=== PATIENT | male | born 1980 | race African-American/Black ===

== ENCOUNTER 2016-06-29 20:25 | Emergency (ER) | payer OTHER ==
[2016-06-29 20:34] VITALS: BP 150/98; PULSE 86; TEMP 97.8; BMI 33.2
[2016-06-29] MEDS ORDERED: KETOROLAC TROMETHAMINE 60 MG/2 ML VIAL ONE (20:47)
[2016-06-29] MEDS ORDERED: KETOROLAC TROMETHAMINE 60 MG/2 ML VIAL IM ONE (20:50)
--- NOTE | 2016-06-29 21:05 | PDOC ---
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 Patient does state history of right lower back pain with sciatica but denies any radiation buttock at this time. Patient denies any radiation to his abdomen, saddle anesthesia, or weakness. Occurred: reports: just prior to arrival Pain Location: reports: back Method of Injury: Yes: other Modifying Factors: improves with: None Associated Symptoms (Fall): denies symptoms Past History - Travel Traveled outside of the country in the last 30 days: No - Past Medical History Allergies/Adverse Reactions: Allergies Allergy/AdvReac Type Severity Reaction Status Date / Time Penicillins Allergy Unknown Verified 06/29/16 20:32 shellfish derived Allergy Verified 06/29/16 20:32 fruit Allergy Uncoded 06/29/16 20:32 vegetables Allergy Uncoded 06/29/16 20:32 Home Medications: Ambulatory Orders Phenytoin Na Extended [Dilantin -] 200 mg PO HS #14 capsule 01/28/15 Seizures: Yes - Surgical History Neurologic Surgery: 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 (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.) - Psycho/Social/Smoking Cessation Hx Anxiety: No Suicidal Ideation: No Smoking History: Never smoked Have you smoked in the past 12 months: No Information on smoking cessation initiated: No Hx Alcohol Use: No Drug/Substance Use Hx: No Substance Use Type: None Patient Lives Alone: No Trauma Specific PMHX - Complaint Specific PMHX Back Injury: Yes Review of Systems - Review of Systems Able to Perform ROS?: Yes Constitutional: No: Symptoms Reported Musculoskeletal: Yes: Back Pain Integumentary: No: Symptoms Reported *Physical Exam - Vital Signs Last Vital Signs Temp Pulse Resp BP Pulse Ox 97.8 F 86 17 150/98 97 06/29/16 20:29 06/29/16 20:29 06/29/16 20:29 06/29/16 20:29 06/29/16 20:29 - Physical Exam General Appearance: Yes: Nourished, Appropriately Dressed. No: Apparent Distress Neck: negative: Tender, Decreased range of motion Gastrointestinal/Abdominal: negative: Tender Musculoskeletal: negative: CVA Tenderness, Decreased Range of Motion, Vertebral Tenderness (no midline. Tenderness at the right paraspinous muscles at L3 and L4 level) Extremity: positive: Normal Range of Motion Integumentary: positive: Normal Color, Warm, Moist Neurologic: positive: Motor Strength 5/5 (ambulatory) ED Treatment Course - Medications Given in the ED: ED Medications Discontinued Medications Generic Name Dose Route Start Last Admin Trade Name Freq PRN Reason Stop Dose Admin Ketorolac Tromethamine 60 mg 06/29/16 20:50 06/29/16 20:54 Toradol Injection - IM 06/29/16 20:51 60 mg ONCE ONE Administration Medical Decision Making - Medical Decision Making 06/29/16 21:04 The patient with acute onset of right low back pain after helping assist with an obese patient. Patient states history of low back pain that specific area patient has no midline tenderness but does have tenderness at the right paraspinous muscles likely due to muscle strain. Patient ordered for Toradol IM and recommended to apply ice for the next 3 days as much as he can tolerate. *DC/Admit/Observation/Transfer Diagnosis at time of Disposition: Strain of lumbar region Qualifiers: Encounter type: initial encounter Qualified Code(s): S39.012A - Strain of muscle, fascia and tendon of lower back, initial encounter - Discharge Dispostion Disposition: HOME Condition at time of disposition: Good - Patient Instructions Printed Discharge Instructions: DI for Low Back Pain Additional Instructions: Please take Motrin 600 mg every 8 hours for discomfort. Apply ice to the affected areas as tolerated for the next 3 days. Avoid triggers or movements that cause discomfort
== END 2016-06-29 21:15 | disposition home or self-care (01) ==
LOC: JERFT 20:25
PROC: 3E0233Z Introduction of Anti-inflammatory into Muscle, Percutaneous Approach (ICD-10-PCS; principal; 2016-06-29)
DX: S39.012A Strain of muscle, fascia and tendon of lower back, initial encounter (principal); X50.0XXA Overexertion from strenuous movement or load, initial encounter; X50.9XXA Other and unspecified overexertion or strenuous movements or postures, initial encounter; Y93.F2 Activity, caregiving, lifting; Y92.238 Other place in hospital as the place of occurrence of the external cause; Y99.0 Civilian activity done for income or pay
CPT/HCPCS: 99281-25

== ENCOUNTER 2016-10-19 20:53 | Emergency (ER) | payer OTHER ==
[2016-10-19 21:01] VITALS: BP 127/70; PULSE 63; TEMP 97; BMI 32.3
[2016-10-19 22:19] LABS: URINE APPEARANCE CLEAR; URINE BILIRUBIN NEGATIVE (NEGATIVE); URINE COLOR LTYELLOW; URINE GLUCOSE (UA) NEGATIVE (NEGATIVE); URINE KETONE NEGATIVE (NEGATIVE); URINE LEUK ESTERASE NEGATIVE (NEGATIVE); URINE NITRITE NEGATIVE (NEGATIVE); URINE PROTEIN NEGATIVE (NEGATIVE); URINE UROBILINOGEN NEGATIVE E.U./dl (0.2-1.0)
--- NOTE | 2016-10-19 22:34 | PDOC ---
History of Present Illness - General Chief Complaint: Urinary Problem Stated Complaint: PAIN Time Seen by Provider: 10/19/16 21:58 - History of Present Illness Initial Comments: 10/19/16 22:32 CHIEF COMPLAINT: urinary symptoms HISTORY OF PRESENT ILLNESS: 36 yo M with no PMH presents to [facility] with c/o that he thinks he has a UTI. HE reports that he has recently had some urinary frequency but denies any pain. He denies any hematuria or unusualy discharge. No recent travel or sick contacts. PAST MEDICAL HISTORY: Denies past medical history FAMILY HISTORY: Denies SOCIAL HISTORY: Denies tobacco, alcohol, illicit drug use. SURGICAL HISTORY: Denies ALLERGIES: No known drug allergies REVIEW OF SYSTEMS General/Constitutional: Denies fever or chills. Gastrointestinal: Denies nausea, vomiting. Genitourinary: Urinary frequency. Denies dysuria or other change in urination. Musculoskeletal: Denies joint or muscle swelling or pain. Denies neck or back pain. Skin: Denies rash or easy bruising. PHYSICAL EXAM General Appearance: Well-appearing, appropriately dressed. No apparent distress. HEENT: EOMI, PERRLA. Respiratory/Chest: Lungs CTAB. Cardiovascular: RRR. S1, S2. Musculoskeletal/Extremities: Normal inspection. FROM of all extremities, normal capillary refill. Pelvis Stable. No CVA tenderness. No tenderness to extremities, pedal edema, swelling, erythema or deformity. Integumentary: Appropriate color, dry, warm. 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 Fully oriented, alert. Appropriate mood/affect. Motor strength 5/5. No appreciable EOM palsy, facial droop or sensory deficit. 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 -UA, Ucx -Ct/GC Labs unremarkable. Advised patient to f/u with urology for concern for BPH. Advised patient of signs and symptoms for return to ER; patient verbalized understanding and agrees to plan. *DC/Admit/Observation/Transfer Diagnosis at time of Disposition: Urinary frequency - Discharge Dispostion Disposition: HOME Condition at time of disposition: Stable Admit: No - Referrals Referrals: Mandi Covarrubias MD [Primary Care Provider] - Nico Rios MD., [Staff Physician] - - Patient Instructions Printed Discharge Instructions: DI for Urinary Retention in Men Additional Instructions: Please follow up with urology for further evaluation of your urinary frequency. Please call for results of your chlaymdia and gonorrhea test if you do not hear back within 2 days. If you experience any increased pain, blood in the urine, fever, nausea, vomiting, or diarrhea, or any new or worsening symptoms, please return to the ER.
[2016-10-19 22:44] LABS: URINE BLOOD 3+ (NEGATIVE)
[2016-10-19 22:45] LABS: URINE MUCUS RARE; URINE WBC <1 /hpf (3-5)
== END 2016-10-19 23:03 | disposition home or self-care (01) ==
LOC: JERFT 20:53
DX: R35.0 Frequency of micturition (principal); G40.909 Epilepsy, unspecified, not intractable, without status epilepticus
CPT/HCPCS: 36415; 81003; 81015; 87086; 87491; 87591; 99281-25

== ENCOUNTER 2017-01-10 16:50 | Emergency (ER) | payer OTHER ==
[2017-01-10 16:57] VITALS: BP 138/88; PULSE 93; TEMP 98; BMI 32.3
--- NOTE | 2017-01-10 17:30 | PDOC ---
History of Present Illness - General Chief Complaint: RX Refill Stated Complaint: POSSIBLE INFECTION Time Seen by Provider: 01/10/17 17:30 History Source: Patient Exam Limitations: No Limitations - History of Present Illness Initial Comments: 01/10/17 17:30 CHIEF COMPLAINT: Medication refill HISTORY OF PRESENT ILLNESS: This is a 36 year old male with a history of seizure disorder on Phenytoin ER 200mg hs (last seizure long ago per patient) who presents for a medication refill. He has two capsules left and has not yet missed any medications. In addition, he is complaining of left ankle swelling and pain. He denies any trauma to the site. He notes that he has had lymphedema in the past. Patient no longer has a PCP because of insurance problems. REVIEW OF SYSTEMS: GENERAL/CONSTITUTIONAL: No fever or chills. No weakness. No weight change. HEAD, EYES, EARS, NOSE AND THROAT: No change in vision. No ear pain or discharge. No sore throat. CARDIOVASCULAR: No chest pain or palpitations. RESPIRATORY: No cough, wheezing, or shortness of breath. GASTROINTESTINAL: No nausea, vomiting, diarrhea or constipation. GENITOURINARY: No dysuria, frequency, or change in urination. MUSCULOSKELETAL: See HPI SKIN: No rash or easy bruising. NEUROLOGIC: No headache, vertigo, loss of consciousness, or loss of sensation. ALLERGIC/IMMUNOLOGIC: No hives or skin allergy. No latex allergy. PHYSICAL EXAM: GENERAL: The patient is awake, alert, and fully oriented, in no acute distress. HEAD: Normal with no signs of trauma. ENT: Pupils equal, round and reactive to light, extraocular movements intact, sclera anicteric, conjunctiva clear. Neck supple. LUNGS: Clear to auscultation bilaterally. Normal excursion. No respiratory distress or use of accessory muscles. CV: RRR, S1/S2, no MRG. Cap refill < 2 sec. ABDOMEN: Soft, non-distended, non-tender. EXTREMITIES: Mild tenderness at left medial malleolus. No calf pain. Negative Homans'. NEUROLOGICAL: Normal speech, normal gait. CN II-XII grossly intact. PSYCH: Normal mood, normal affect. SKIN: Warm, dry, normal turgor, no rashes or lesions noted. 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 -Rx refill -Ibuprofen for pain/swelling -Left ankle xray 01/10/17 19:21 Xray wet read: no acute process *DC/Admit/Observation/Transfer Diagnosis at time of Disposition: Prescription refill Ankle swelling Qualifiers: Laterality: left Qualified Code(s): M25.472 - Effusion, left ankle - Discharge Dispostion Disposition: HOME Condition at time of disposition: Stable Admit: No - Prescriptions Prescriptions: Phenytoin Na Extended [Dilantin -] 200 mg PO HS #60 capsule - Referrals Referrals: Arsenio Miranda MD [Staff Physician] - Adelso Chandler MD [Staff Physician] - 1 week (Neurologist) - Patient Instructions Printed Discharge Instructions: DI for Ankle Pain Additional Instructions: -Continue your Dilantin as prescribed -Rest with the ankle elevated and use the RANDY wrap provided -Follow up with a new primary care provider (referral enclosed) -Return here for any new or concerning symptoms
[2017-01-10] MEDS ORDERED: IBUPROFEN 600 MG TABLET (FP) PO ONE ×2 (18:53→18:58)
== END 2017-01-10 19:35 | disposition home or self-care (01) ==
LOC: JERFT 16:50
DX: Z76.0 Encounter for issue of repeat prescription (principal); G40.909 Epilepsy, unspecified, not intractable, without status epilepticus; M25.472 Effusion, left ankle
CPT/HCPCS: 73610-TC-LT; 73630-TC-LT; 99281-25

== ENCOUNTER 2017-03-14 20:36 | Emergency (ER) | payer BC, OTHER ==
[2017-03-14 20:45] VITALS: BP 132/81; PULSE 89; TEMP 97.7; BMI 34.0
[2017-03-14] MEDS ORDERED: ACETAMINOPHEN 325 MG TABLET (FP) PO ONE (23:31)
[2017-03-14] MEDS ORDERED: METOCLOPRAMIDE HCL INJECTION 10 MG/2 ML VIAL IM ONE (23:31)
[2017-03-14] MEDS ORDERED: ACETAMINOPHEN 325 MG TABLET (FP) ONE (23:34)
[2017-03-14] MEDS ORDERED: METOCLOPRAMIDE HCL INJECTION 10 MG/2 ML VIAL ONE (23:34)
--- NOTE | 2017-03-14 23:44 | PDOC ---
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 The patient reports developing a headache this morning, 10/10 severity at onset but now 5/10.He denies taking any medication for his headache. The patient also reports developing LUQ & RUQ abdominal pain shortly afterwards. However, the patient reports his abdominal pain resolved before presentation. The patient states he also presents to the ED for a medication refill on Phenytoin, his epilepsy medication, as he currently does not have a PCP. The patient is currently on 100 mg bid of Phenytoin, which was last prescribed here in the ED on 01/10/17. The patient does not currently have a Neurologist. The patient denies chest pain, shortness of breath, and dizziness Denies fever, chills, nausea, vomiting, diarrhea, and constipation. Denies dysuria, frequency, urgency and hematuria. Allergies: Penicillins Past surgical history: None reported. Social history: No reported cigarette, alcohol, or drug use. PCP: Previously Dr. Covarrubias, now none due to insurance issues. 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 SHUNT.) - Suicide/Smoking/Psychosocial Hx Smoking History: Never smoked Have you smoked in the past 12 months: No Information on smoking cessation initiated: No Hx Alcohol Use: No Drug/Substance Use Hx: No Substance Use Type: None <Nuzhat Evangelista - Last Filed: 03/15/17 01:52> - Past Medical History Allergies/Adverse Reactions: Allergies Allergy/AdvReac Type Severity Reaction Status Date / Time Penicillins Allergy Unknown Verified 03/14/17 20:56 shellfish derived Allergy Verified 03/14/17 20:56 fruit Allergy Uncoded 03/14/17 20:56 vegetables Allergy Uncoded 03/14/17 20:56 Home Medications: Ambulatory Orders Phenytoin Na Extended [Dilantin -] 200 mg PO HS #60 capsule 01/10/17 Review of Systems - Review of Systems Able to Perform ROS?: Yes Comments:: 03/14/17 23:48 GENERAL/CONSTITUTIONAL: No fever or chills. No weakness. HEAD, EYES, EARS, NOSE AND THROAT: No change in vision. No ear pain or discharge. No sore throat. CARDIOVASCULAR: No chest pain or shortness of breath. RESPIRATORY: No cough, wheezing, or hemoptysis. GASTROINTESTINAL: (+) RUQ & LUQ abdominal pain, now resolved. No nausea, vomiting, diarrhea or constipation. GENITOURINARY: No dysuria, frequency, or change in urination. MUSCULOSKELETAL: No joint or muscle swelling or pain. No neck or back pain. SKIN: No rash NEUROLOGIC: (+) Headache. No vertigo, loss of consciousness, or change in strength/sensation. ENDOCRINE: No increased thirst. No abnormal weight change. HEMATOLOGIC/LYMPHATIC: No anemia, easy bleeding, or history of blood clots. ALLERGIC/IMMUNOLOGIC: No hives or skin allergy. <Sandeep Brooks - Last Filed: 03/14/17 23:47> *Physical Exam - Vital Signs Last Vital Signs Temp Pulse Resp BP Pulse Ox 97.7 F 89 18 132/81 99 03/14/17 20:37 03/14/17 20:37 03/14/17 20:37 03/14/17 20:37 03/14/17 20:37 - Physical Exam Comments: 03/14/17 23:48 GENERAL: Awake, alert, and fully oriented, in no acute distress HEAD: No signs of trauma EYES: PERRLA, EOMI, sclera anicteric, conjunctiva clear ENT: Auricles normal inspection, hearing grossly normal, nares patent, oropharynx clear without exudates. Moist mucosa NECK: Normal ROM, supple, no lymphadenopathy, JVD, or masses LUNGS: Breath sounds equal, clear to auscultation bilaterally. No wheezes, and no crackles HEART: Regular rate and rhythm, normal S1 and S2, no murmurs, rubs or gallops ABDOMEN: Soft, nontender, normoactive bowel sounds. No guarding, no rebound. No masses EXTREMITIES: Normal range of motion, no edema. No clubbing or cyanosis. No cords, erythema, or tenderness NEUROLOGICAL: Cranial nerves II through XII grossly intact. Normal speech, normal gait SKIN: Warm, Dry, normal turgor, no rashes or lesions noted. <Sandeep Brooks - Last Filed: 03/14/17 23:47> - Vital Signs Last Vital Signs Temp Pulse Resp BP Pulse Ox 97.7 F 89 18 132/81 99 03/14/17 20:37 03/14/17 20:37 03/14/17 20:37 03/14/17 20:37 03/14/17 20:37 <Nuzhat Evangelista - Last Filed: 03/15/17 01:52> ED Treatment Course - Medications Given in the ED: ED Medications Discontinued Medications Generic Name Dose Route Start Last Admin Trade Name Freq PRN Reason Stop Dose Admin Acetaminophen 650 mg 03/14/17 23:31 03/14/17 23:40 Tylenol - PO 03/14/17 23:32 650 mg ONCE ONE Administration Metoclopramide HCl 10 mg 03/14/17 23:31 03/14/17 23:40 Reglan Injection - IM 03/14/17 23:32 10 mg ONCE ONE Administration <Sandeep Brooks - Last Filed: 03/14/17 23:47> - Medications Given in the ED: ED Medications Discontinued Medications Generic Name Dose Route Start Last Admin Trade Name Freq PRN Reason Stop Dose Admin Acetaminophen 650 mg 03/14/17 23:31 03/14/17 23:40 Tylenol - PO 03/14/17 23:32 650 mg ONCE ONE Administration Metoclopramide HCl 10 mg 03/14/17 23:31 03/14/17 23:40 Reglan Injection - IM 03/14/17 23:32 10 mg ONCE ONE Administration <Nuzhat Evangelista - Last Filed: 03/15/17 01:52> Medical Decision Making - Medical Decision Making 03/15/17 01:51 Pt comes with headache. Cant work today. He took nothing for the PRIEST. He will be given tylenol and reglan and discharged home. <Nuzhat Evangelista - Last Filed: 03/15/17 01:52> *DC/Admit/Observation/Transfer - Attestations Scribe Attestion: 03/14/17 23:48 Documentation prepared by Sandeep Brooks, acting as program medical director for Nuzhat Evangelista MD. <Sandeep Brooks - Last Filed: 03/14/17 23:47> - Discharge Dispostion Admit: No <Nuzhat Evangelista - Last Filed: 03/15/17 01:52> Diagnosis at time of Disposition: Headache - Discharge Dispostion Disposition: HOME Condition at time of disposition: Stable - Referrals Referrals: Mandi Covarrubias MD [Primary Care Provider] - - Patient Instructions Printed Discharge Instructions: DI for Headache - Post Discharge Activity
[2017-03-15] MEDS ORDERED: PHENYTOIN NA EXTENDED 100 MG CAPSULE (FP) ONE (02:45)
[2017-03-15] MEDS ORDERED: PHENYTOIN NA EXTENDED 100 MG CAPSULE (FP) PO ONE (02:46)
== END 2017-03-15 02:49 | disposition home or self-care (01) ==
LOC: JER 20:36
PROC: 3E023GC Introduction of Other Therapeutic Substance into Muscle, Percutaneous Approach (ICD-10-PCS; principal; 2017-03-14)
DX: R51 Headache (principal)
CPT/HCPCS: 99281-25

== ENCOUNTER 2017-05-13 08:01 | Emergency (ER) | payer OTHER ==
[2017-05-13 08:06] VITALS: BP 128/75; PULSE 90; TEMP 98.1; BMI 33.2
[2017-05-13] MEDS ORDERED: IBUPROFEN 600 MG TABLET (FP) PO ONE ×2 (09:08→09:24)
--- NOTE | 2017-05-13 09:14 | PDOC ---
History of Present Illness - General Chief Complaint: Injury Stated Complaint: FALL Time Seen by Provider: 05/13/17 08:21 History Source: Patient Exam Limitations: No Limitations - History of Present Illness Initial Comments: 05/13/17 09:09 States last night while at work slipped and fell to the right side landing on his buttocks and shoulder. No head injury, has mild complaints of shoulder and hip pain but is ambulatory. "I just want to make sure I didn't break anything" Occurred: reports: just prior to arrival Severity: reports: mild Pain Location: reports: upper extremity (left shpul;ajay and hip[. ) Modifying Factors: improves with: None Past History - Travel Traveled outside of the country in the last 30 days: No Close contact w/someone who was outside of country & ill: No - Past Medical History Allergies/Adverse Reactions: Allergies Allergy/AdvReac Type Severity Reaction Status Date / Time Penicillins Allergy Unknown Verified 05/13/17 08:06 shellfish derived Allergy Verified 05/13/17 08:06 fruit Allergy Uncoded 05/13/17 08:06 vegetables Allergy Uncoded 05/13/17 08:06 Home Medications: Ambulatory Orders Phenytoin Na Extended [Dilantin -] 200 mg PO HS #60 capsule 01/10/17 Phenytoin Na Extended [Dilantin -] 100 mg PO BID #14 capsule 03/15/17 COPD: No DVT: No Seizures: Yes - Surgical History 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 No: Symptoms Reported, Malaise HEENTM: Yes: See HPI. No: Symptoms Reported Musculoskeletal: Yes: Symptoms Reported, See HPI, Back Pain, Joint Swelling, Joint Stiffness All Other Systems: Reviewed and Negative *Physical Exam - Vital Signs Last Vital Signs Temp Pulse Resp BP Pulse Ox 98.1 F 90 20 128/75 100 05/13/17 08:03 05/13/17 08:03 05/13/17 08:03 05/13/17 08:03 05/13/17 08:03 - Physical Exam General Appearance: Yes: Appropriately Dressed, Apparent Distress HEENT: positive: WILLIE, Normal ENT Inspection, TMs Normal, Pharynx Normal Neck: positive: Supple Respiratory/Chest: positive: Lungs Clear. negative: Chest Tender Gastrointestinal/Abdominal: positive: Soft. negative: Tender Musculoskeletal: positive: Normal Inspection. negative: CVA Tenderness, Decreased Range of Motion (no deformity, bruising, immobility, or tenderness with range of motion), Muscle Spasm, Vertebral Tenderness Extremity: positive: Normal Capillary Refill, Normal Inspection Integumentary: positive: Normal Color, Dry, Warm. 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 We'll treat with NSAIDs *DC/Admit/Observation/Transfer Diagnosis at time of Disposition: Contusion Qualifiers: Encounter type: initial encounter Contusion area: lower back Qualified Code(s) : S30.0XXA - Contusion of lower back and pelvis, initial encounter - Discharge Dispostion Disposition: HOME Condition at time of disposition: Stable Admit: No - Referrals Referrals: Mandi Covarrubias MD [Primary Care Provider] - - Patient Instructions Printed Discharge Instructions: Easy Bruising (Alternative Therapy) Additional Instructions: Rest, ice to area on and off for 15 minutes 4-6 times a day Avoid heavy lifting or exercise until pain and swelling is resolved or until further directed Keep area highly elevated to reduce swelling Followup with orthopedist in one to 2 days if not improving, if significantly improved may wait one week for followup with orthopedist May use ibuprofen 2-200 mg tablets every 6 hours as needed for pain - Post Discharge Activity Forms/Work/School Notes: Back to Work
== END 2017-05-13 09:23 | disposition home or self-care (01) ==
LOC: JERFT 08:01
DX: S30.0XXA Contusion of lower back and pelvis, initial encounter (principal); G43.909 Migraine, unspecified, not intractable, without status migrainosus; W00.2XXA Other fall from one level to another due to ice and snow, initial encounter; Y93.89 Activity, other specified; Y92.238 Other place in hospital as the place of occurrence of the external cause; Y99.0 Civilian activity done for income or pay
CPT/HCPCS: 99281-25

== ENCOUNTER 2017-07-03 10:23 | Emergency (ER) | payer BC, OTHER ==
[2017-07-03 10:37] VITALS: BP 148/71; PULSE 69; TEMP 97.9; BMI 32.5
--- NOTE | 2017-07-03 11:05 | PDOC ---
History of Present Illness - General Chief Complaint: RX Refill Stated Complaint: EVALUATION History Source: Patient Exam Limitations: No Limitations - History of Present Illness Initial Comments: 07/03/17 17:40 This 37-year-old male who presents here to the fast track for the need of having a prescription refill. Patient has a history of seizures and takes Dilantin 200 mg by mouth daily however he is going to be out of his prescription. He does not have a primary care physician. Last seizure was over a year ago. Past History - Past Medical History Allergies/Adverse Reactions: Allergies Allergy/AdvReac Type Severity Reaction Status Date / Time Penicillins Allergy Unknown Verified 07/03/17 10:32 shellfish derived Allergy Verified 07/03/17 10:32 fruit Allergy Uncoded 07/03/17 10:32 vegetables Allergy Uncoded 07/03/17 10:32 Home Medications: Ambulatory Orders Phenytoin Na Extended [Dilantin -] 200 mg PO HS #60 capsule 01/10/17 Phenytoin Na Extended [Dilantin -] 100 mg PO BID #14 capsule 03/15/17 Phenytoin Na Extended [Dilantin -] 100 mg PO BID #60 capsule 07/03/17 COPD: No DVT: No Seizures: Yes - Surgical History 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 HEENT: Neg symptoms Respiratory: Neg SOB or difficulty in breathing Cardiac: Neg chest pain GI: Neg pain, n/v : Neg problems on voiding MS: Neg for joint pain/stiffness, no edema Neuro: Neg for LOC, weakness, Endocrine: Neg for excess thirst/hunger, cold/heat intolerance, excess sweating Allergies: + for allergies *Physical Exam - Vital Signs Last Vital Signs Temp Pulse Resp BP Pulse Ox 97.9 F 69 15 148/71 100 07/03/17 10:33 07/03/17 10:33 07/03/17 10:33 07/03/17 10:33 07/03/17 10:33 - Physical Exam Comments: 07/03/17 18:12 General Appearance: This well appearing 37-year-old male V/S: hemodynamically stable, afebrile Skin: WNL of pt's skin color, no signs of pallor, mottling, cyanosis Head:symmetrical Eyes: EOM's intact, PERRLA Ears: denies pain Nose: patent Throat: lips, teeth, gums, tongue, buccal mucos pink and moist Lungs: Chest symmetry equal. Cap refill <3 seconds. Lung sounds clear Cardiac: PMI at R 4MCL space, pos S1 and S2, regular rate. Abdomen: Soft, round, nontender : Not observed Muscularskeletal: Gait steady, ambulated in to ER, no edema +PMS Neuro: AAOx3, cognitively intact, speech clear and appropriate. Medical Decision Making - Medical Decision Making 07/03/17 18:12 Patient's prescription refilled and sent to pharmacy for Dilantin 200 mg by mouth daily at bedtime. *DC/Admit/Observation/Transfer Diagnosis at time of Disposition: Prescription refill - Discharge Dispostion Disposition: HOME Condition at time of disposition: Good Admit: No Decision to Admit order Date/Time: 07/03/17 11:04 Discharge instructions 1. Please follow up with your primary physician within the next few days and explain that you have been seen here in the Emergency Room. 2. If you experience any worsening of symptoms, please return to the ER 3. Rest 4. Drink plenty of water 5. 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
== END 2017-07-03 11:06 | disposition home or self-care (01) ==
LOC: JERFT 10:23
DX: Z76.0 Encounter for issue of repeat prescription (principal); G40.909 Epilepsy, unspecified, not intractable, without status epilepticus
CPT/HCPCS: 99281-25

== ENCOUNTER 2017-09-08 00:14 | Emergency (ER) | payer BC ==
[2017-09-08 00:33] VITALS: BP 121/78; PULSE 85; TEMP 97.5; BMI 32.5
--- NOTE | 2017-09-08 00:40 | PDOC ---
History of Present Illness - General Chief Complaint: RX Refill Stated Complaint: RX REFILL Time Seen by Provider: 09/08/17 00:30 History Source: Patient Exam Limitations: No Limitations - History of Present Illness Initial Comments: 09/08/17 00:50 37y M hx of FINE ARTS MODEL shunt, seizures on phenytoin 200mg QHS presents for med refill. pt has no complaints including heaadche, dizziness, viison changes, n/v, numbness/tingling/weakness. states that he is running out of his dilantin and would like a refill. has been having difficulty finding a neurologist for a timely visit. his last dose of phanytoin was today. Past History - Past Medical History Allergies/Adverse Reactions: Allergies Allergy/AdvReac Type Severity Reaction Status Date / Time Penicillins Allergy Unknown Verified 09/08/17 00:24 shellfish derived Allergy Verified 09/08/17 00:24 fruit Allergy Uncoded 09/08/17 00:24 vegetables Allergy Uncoded 09/08/17 00:24 Home Medications: Ambulatory Orders Phenytoin Na Extended [Dilantin -] 100 mg PO BID #14 capsule 03/15/17 Phenytoin Na Extended [Dilantin -] 100 mg PO BID #60 capsule 07/03/17 Phenytoin Na Extended [Dilantin -] 200 mg PO HS #60 capsule 09/08/17 COPD: No DVT: No Seizures: Yes - Surgical History Neurologic Surgery: Yes (FINE ARTS MODEL SHUNT.) - Immunization History Immunization Up to Date: Yes - Suicide/Smoking/Psychosocial Hx Smoking History: Never smoked Have you smoked in the past 12 months: No Information on smoking cessation initiated: No Hx Alcohol Use: No Drug/Substance Use Hx: No Substance Use Type: None Review of Systems - Review of Systems Able to Perform ROS?: Yes Comments:: 09/08/17 00:52 Constitutional - no reported Fever, Chills, HEENT: no reported vision changes, sore throat neurological: no reported headache, numbness, focal weakness, tingling, ataxia, *Physical Exam - Vital Signs Last Vital Signs Temp Pulse Resp BP Pulse Ox 97.5 F L 85 19 121/78 98 09/08/17 00:22 09/08/17 00:22 09/08/17 00:22 09/08/17 00:22 09/08/17 00:22 - Physical Exam Comments: 09/08/17 00:52 GENERAL: The patient is awake, alert, and fully oriented, Nontoxic - in no acute distress. HEAD: Normocephalic, atraumatic. EYES: lateral gaze deviation of R eye (chronic), EOMI on L eye ENT: Normal voice, Moist mucous membranes. NECK: Normal range of motion, supple LUNGS: Breath sounds equal, clear to auscultation bilaterally. No wheezes, no rhonchi, no rales. HEART: Regular rate and rhythm, normal S1 and S2 without murmur, rub or gallop. ABDOMEN: Soft, nontender, No guarding, no rebound. EXTREMITIES: Normal range of motion, no edema. No clubbing or cyanosis. No cords, erythema, or tenderness. NEUROLOGICAL: No facial assymetry, Normal speech, PSYCH: Normal mood, normal affect. SKIN: Warm, Dry, normal turgor, Medical Decision Making - Medical Decision Making 09/08/17 00:53 Will refill rx of phenytoin We'll discharge patient follow with neurology discussed the importance of following up with neurology for further management and follow up as the patient has a FINE ARTS MODEL shunt, and has a seizure history. He has no complaints to suggest any complications of the FINE ARTS MODEL shunt. Return precautions were discussed I discussed the physical exam findings, ancillary test results and final diagnoses with the patient. I answered all of the patient's questions. The patient was satisfied with the care received and felt comfortable with the discharge plan and treatment plan. The patient will call their primary care physician within 24 hours to arrange follow-up and will return to the Emergency Department with any new, persistent or worsening symptoms. *DC/Admit/Observation/Transfer Diagnosis at time of Disposition: Seizure disorder - Discharge Dispostion Disposition: HOME Condition at time of disposition: Stable Decision to Admit order: No - Prescriptions Prescriptions: Phenytoin Na Extended [Dilantin -] 200 mg PO HS #60 capsule - Referrals Referrals: Niurka Collazo NP [Primary Care Provider] - Adelso Chandler MD [Staff Physician] - - Patient Instructions Printed Discharge Instructions: DI for Seizure Disorder -- Adult Additional Instructions: Return to the emergency department immediately with ANY new, persistent or worsening symptoms including any headache, dizziness, vision changes or other concerns. Continue taking your dilantin as prescribed. You MUST call and follow up with your a neurologist for further evaluation of your symptoms. Results were discussed with you. Please make sure your doctor reviews the results of your emergency evaluation. Print Language: SINGAPOREAN - Post Discharge Activity
== END 2017-09-08 00:48 | disposition home or self-care (01) ==
LOC: SUPCPDRO 00:14 → JER 00:14
DX: G40.909 Epilepsy, unspecified, not intractable, without status epilepticus (principal)
CPT/HCPCS: 99281-25

== ENCOUNTER 2017-10-16 07:18 | Emergency (ER) | payer BC ==
[2017-10-16 08:10] VITALS: BP 137/87; PULSE 87; TEMP 97.4; BMI 32.3
--- NOTE | 2017-10-16 08:18 | PDOC ---
History of Present Illness - General Chief Complaint: RX Refill Stated Complaint: RX REFILL Time Seen by Provider: 10/16/17 08:05 History Source: Patient - History of Present Illness Timing/Duration: other Past History - Past Medical History Allergies/Adverse Reactions: Allergies Allergy/AdvReac Type Severity Reaction Status Date / Time Penicillins Allergy Unknown Verified 10/16/17 07:21 shellfish derived Allergy Verified 10/16/17 07:21 fruit Allergy Uncoded 10/16/17 07:21 vegetables Allergy Uncoded 10/16/17 07:21 Home Medications: Ambulatory Orders Phenytoin Na Extended [Dilantin -] 200 mg PO HS #60 capsule 10/16/17 COPD: No DVT: No Seizures: Yes - Surgical History 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 No: Apparent Distress HEENT: positive: Normal Voice Neck: positive: Supple Respiratory/Chest: negative: Respiratory Distress Integumentary: positive: Dry, Warm Neurologic: positive: Fully Oriented, Alert, Normal Mood/Affect Medical Decision Making - Medical Decision Making 10/16/17 08:19 37-year-old male, history of grand mal seizures on phenytoin, ran out of meds, and here for refill. Patient states he took last dose last night. Has not had a seizure since 2016. No acute medical complaints otherwise today. Patient states he has been lost to follow up with his PMD, Dr. Covarrubias and currently does not have a neurologist. States he did call his insurance and got a list of neurologists who accepts his insurance, but states when he calls he is sometimes told that "doctor is no longer working there". States he will continue to try and find himself a neurologist. Refill sent to pharmacy stable for discharge *DC/Admit/Observation/Transfer Diagnosis at time of Disposition: Medication refill - Discharge Dispostion Disposition: HOME Condition at time of disposition: Good - Prescriptions Prescriptions: Phenytoin Na Extended [Dilantin -] 200 mg PO HS #60 capsule - Referrals - Patient Instructions Additional Instructions: Continue taking your medication as prescribed and continue to try and find a neurologist, who accepts your insurance. You can also follow-up with your PMD for refill of her meds in the future - Post Discharge Activity
== END 2017-10-16 08:38 | disposition home or self-care (01) ==
LOC: JER 07:18
DX: Z76.0 Encounter for issue of repeat prescription (principal)
CPT/HCPCS: 99281-25

== ENCOUNTER 2017-11-25 08:33 | Emergency (ER) | payer BC ==
[2017-11-25 08:55] VITALS: BP 118/64; PULSE 74; TEMP 98.3; BMI 31.8
[2017-11-25] MEDS ORDERED: KETOROLAC TROMETHAMINE 60 MG/2 ML VIAL IM ONE (10:15)
[2017-11-25] MEDS ORDERED: KETOROLAC TROMETHAMINE 60 MG/2 ML VIAL ONE (10:18)
--- NOTE | 2017-11-25 10:19 | PDOC ---
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 Is uncertain as to cause , denies any changes in exercise, lifting or trauma. States has not had an issue with his back for many months. Takes no medication for relief of same. Occurred: reports: yesterday Severity: reports: moderate Pain Location: reports: back Method of Injury: Yes: unknown Modifying Factors: improves with: None Loss of Consciousness: no loss of consciousness Associated Symptoms (Fall): denies symptoms Past History - Travel Traveled outside of the country in the last 30 days: No Close contact w/someone who was outside of country & ill: No - Past Medical History Allergies/Adverse Reactions: Allergies Allergy/AdvReac Type Severity Reaction Status Date / Time Penicillins Allergy Unknown Verified 11/25/17 08:51 shellfish derived Allergy Verified 11/25/17 08:51 fruit Allergy Uncoded 11/25/17 08:51 vegetables Allergy Uncoded 11/25/17 08:51 Home Medications: Ambulatory Orders Naproxen [Naprosyn -] 500 mg PO TID #30 tablet 11/25/17 Phenytoin Na Extended [Dilantin -] 100 mg PO DAILY 11/25/17 COPD: No DVT: No Seizures: Yes - Surgical History 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 No: Fever HEENTM: No: Symptoms Reported Respiratory: No: Symptoms reported Musculoskeletal: Yes: Symptoms Reported, See HPI, Back Pain, Muscle Pain Integumentary: No: Symptoms Reported All Other Systems: Reviewed and Negative *Physical Exam - Vital Signs Last Vital Signs Temp Pulse Resp BP Pulse Ox 98.3 F 74 20 118/64 100 11/25/17 08:51 11/25/17 08:51 11/25/17 08:51 11/25/17 08:51 11/25/17 08:51 - Physical Exam General Appearance: Yes: Nourished, Appropriately Dressed, Apparent Distress, Mild Distress, Moderate Distress HEENT: positive: WILLIE, Normal ENT Inspection, TMs Normal, Pharynx Normal Neck: positive: Supple Gastrointestinal/Abdominal: positive: Soft Musculoskeletal: positive: Normal Inspection Extremity: positive: Normal Capillary Refill, Normal Inspection, Normal Range of Motion (ambulatory but walks with mild limp to the right) Integumentary: positive: Normal Color Neurologic: positive: conservation planner II-XII NML intact, Fully Oriented, Alert, Normal Mood/ Affect, Normal Response, Motor Strength /5 Progress Note - Progress Note Progress Note: Acute on chronic back pain, we'll treat with NSAIDs and cyclobenzaprine *DC/Admit/Observation/Transfer Diagnosis at time of Disposition: Acute exacerbation of chronic low back pain - Discharge Dispostion Disposition: HOME Condition at time of disposition: Stable Decision to Admit order: No - Prescriptions Prescriptions: Naproxen [Naprosyn -] 500 mg PO TID #30 tablet - Referrals Referrals: Mandi Covarrubias MD [Primary Care Provider] - Tim Arambula MD [Staff Physician] - - Patient Instructions Printed Discharge Instructions: DI for Back Strain or Sprain Additional Instructions: Rest, no heavy lifting or exercise until pain is resolved Hot soaks to neck and low back as often as possible/hot showers or Jacuzzis No massage or therapy until spasm is gone Continue Naprosyn 500 mg tablet, 1 tablet every 8 hours for the next 3 days then as needed for pain and swelling If not significant improvement within 24 hours with medication and rest regime, followup with private physician for change in medications and /or therapy. - Post Discharge Activity Forms/Work/School Notes: Back to Work
== END 2017-11-25 10:24 | disposition home or self-care (01) ==
LOC: JERFT 08:33
PROC: 3E0233Z Introduction of Anti-inflammatory into Muscle, Percutaneous Approach (ICD-10-PCS; principal; 2017-11-25)
DX: M54.5 Low back pain (principal); Z88.0 Allergy status to penicillin; Z91.013 Allergy to seafood
CPT/HCPCS: 99281-25

== ENCOUNTER 2017-12-25 04:43 | Emergency (ER) | payer BC ==
[2017-12-25 05:06] VITALS: BP 124/75; PULSE 88; TEMP 97.7; BMI 31.1
--- NOTE | 2017-12-25 05:06 | PDOC ---
History of Present Illness - General Chief Complaint: RX Refill Stated Complaint: RX REFILL Time Seen by Provider: 12/25/17 05:04 - History of Present Illness Initial Comments: 12/25/17 05:26 The patient is a 37 year old male with a history of seizures and a v/p shunt who presents for a prescription refill. The patient states that he is running out of his dilantin and is requesting a refill. He has been unable to establish follow up care with a neurologist. He states that he has not had a seizure since 2016. He otherwise is asymptomatic and denies any fevers, chills , SOB, chest pain, nausea, vomiting, abdominal pain, or changes with urination or bowel movements. 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.) - Immunization History Immunization Up to Date: Yes - Suicide/Smoking/Psychosocial Hx Smoking History: Never smoked Have you smoked in the past 12 months: No Information on smoking cessation initiated: No Hx Alcohol Use: No Drug/Substance Use Hx: No Substance Use Type: None Review of Systems - Review of Systems Comments:: 12/25/17 05:30 Constitutional: No fevers, chills, fatigue, malaise HEENT: No Rhinorrhea, nasal congestion, visual changes Cardiovascular: No chest pain, syncope, palpitations, lightheadedness Respiratory: No Cough, SOB, Hemoptysis, Gastrointestinal: No Abdominal pain, Nausea, Vomiting, Constipation, Diarrhea, Melena Genitourinary: No Dysuria, Frequency, Urgency, Hesitancy, Hematuria, Flank pain Musculoskeletal: No Myalgia, arthralgia Skin: No rashes, itching, bruising, pallor Neurologic: No Headache, Dizziness, Numbness, Weakness, or Tingling Psychiatric: No Hallucinations. No SI or HI *Physical Exam - Vital Signs Last Vital Signs Temp Pulse Resp BP Pulse Ox 97.7 F 88 18 124/75 98 12/25/17 04:59 12/25/17 04:59 12/25/17 04:59 12/25/17 04:59 12/25/17 04:59 - Physical Exam Comments: 12/25/17 05:30 General Appearance: Nourished. No Apparent Distress HEENT: No Pharyngeal Erythema, Tonsillar Exudate, Tonsillar Erythema Neck: No Cervical Lymphadenopathy Respiratory/Chest: Lungs Clear, Normal Breath Sounds. No Crackles, Rales, Rhonchi, Wheezing Cardiovascular: Regular Rhythm, Regular Rate. No Murmur, Gallops, Rubs Gastrointestinal/Abdominal: Normal Bowel Sounds, Soft. No Guarding, Rebound, Tenderness Musculoskeletal: No CVA Tenderness Extremity: Normal Capillary Refill Integumentary: Normal Color, Dry, Warm Neurologic: Fully Oriented, Alert, Normal Mood/Affect, Normal Response, Medical Decision Making - Medical Decision Making 12/25/17 05:30 The patient is a 37 year old male with a history of seizures and a v/p shunt who presents for a prescription refill. The patient appears well on exam here in the ER. We discussed the need to follow up with a neurologist with the patient and will provide a number for the patient to schedule follow up. We are comfortable discharging the patient home with a refill for his dilantin with neurology follow up. We discussed the plan and return precautions with the patient who voiced understanding and is agreeable with the plan. *DC/Admit/Observation/Transfer Diagnosis at time of Disposition: Prescription refill - Discharge Dispostion Disposition: HOME Condition at time of disposition: Stable - Prescriptions Prescriptions: Phenytoin Na Extended [Dilantin -] 100 mg PO DAILY #60 capsule - Referrals Referrals: Adelso Chandler MD [Staff Physician] - - Patient Instructions Printed Discharge Instructions: DI for Seizure Disorder -- Adult Additional Instructions: Please return to the ER if you experience concerning or worsening symptoms. It is very important that you call to schedule a follow up appointment with our neurologist Dr. Chandler within 1 week to discuss your ER visit and further management of your symptoms and to establish care. We have sent a prescription to your pharmacy for your seizure medication. - Post Discharge Activity
--- NOTE | 2017-12-25 05:20 | PDOC ---
Attending Attestation - Resident Resident Name: [facility] - ED Attending Attestation I have performed the following: I have examined & evaluated the patient, The case was reviewed & discussed with the resident, I agree w/resident's findings & plan, Exceptions are as noted - HPI HPI: 12/25/17 05:25 37 yo M presenting to the ER for medication refill - Physicial Exam PE: 12/25/17 05:25 Awake and alert No acute abnormalities - Medical Decision Making 12/25/17 05:26 Prescription ordered Will discharge to home
== END 2017-12-25 07:06 | disposition home or self-care (01) ==
LOC: JER 04:43
DX: Z76.0 Encounter for issue of repeat prescription (principal)
CPT/HCPCS: 99281-25

== ENCOUNTER 2018-02-26 08:17 | Emergency (ER) | payer OTHER, BC ==
[2018-02-26 08:37] VITALS: BP 117/78; PULSE 68; TEMP 98.2; BMI 34.4
--- NOTE | 2018-02-26 08:49 | PDOC ---
History of Present Illness - General Chief Complaint: Pain, Acute Stated Complaint: LEG PAIN Time Seen by Provider: 02/26/18 08:38 History Source: Patient Exam Limitations: No Limitations - History of Present Illness Initial Comments: 02/26/18 08:47 37-year-old male presents with complaints of right calf pain for 1 week . 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 Patient states to walk and has full mobility but does have pain with movement intermittently. Patient denies sensory changes distal of injury or radiation of pain. Timing/Duration: 1 week Severity: mild Associated Symptoms: reports: denies symptoms Past History - Travel Traveled outside of the country in the last 30 days: No - Past Medical History Allergies/Adverse Reactions: Allergies Allergy/AdvReac Type Severity Reaction Status Date / Time Penicillins Allergy Unknown Verified 02/26/18 08:31 shellfish derived Allergy Verified 02/26/18 08:31 fruit Allergy Uncoded 02/26/18 08:31 vegetables Allergy Uncoded 02/26/18 08:31 Home Medications: Ambulatory Orders Phenytoin Na Extended [Dilantin -] 100 mg PO DAILY #60 capsule 12/25/17 COPD: No DVT: No Seizures: Yes - Surgical History 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6) - Immunization History Immunization Up to Date: Yes - Suicide/Smoking/Psychosocial Hx Smoking History: Never smoked Have you smoked in the past 12 months: No Hx Alcohol Use: No Drug/Substance Use Hx: No Substance Use Type: None Patient Lives Alone: No Review of Systems - Review of Systems Able to Perform ROS?: Yes Constitutional: No: Symptoms Reported Musculoskeletal: Yes: Muscle Pain (right calf) Integumentary: No: Symptoms Reported, Bruising Neurological: No: Symptoms reported *Physical Exam - Vital Signs Last Vital Signs Temp Pulse Resp BP Pulse Ox 98.2 F 68 20 117/78 99 02/26/18 08:31 02/26/18 08:31 02/26/18 08:31 02/26/18 08:31 02/26/18 08:31 - Physical Exam General Appearance: Yes: Nourished, Appropriately Dressed. No: Apparent Distress HEENT: positive: EOMI Respiratory/Chest: negative: Respiratory Distress Extremity: positive: Normal Capillary Refill, Normal Inspection, Normal Range of Motion, Tender (distal aspect of right calf). negative: Pedal Edema Integumentary: positive: Normal Color, Warm, Moist Neurologic: positive: Motor Strength 5/5 (ambulatory) Medical Decision Making - Medical Decision Making 02/26/18 08:51 CC: Rt calf pain x 1 week Exam: tenderness to distal aspect of right calf muscle, likely strain Plan: supportive care instructions given *DC/Admit/Observation/Transfer Diagnosis at time of Disposition: Strain of calf muscle - Discharge Dispostion Disposition: HOME Condition at time of disposition: Good - Referrals - Patient Instructions Printed Discharge Instructions: DI for Calf Muscle Strain Additional Instructions: Please apply heat pad to area as needed May take motrin 400mg as needed for pain - Post Discharge Activity
== END 2018-02-26 09:20 | disposition home or self-care (01) ==
LOC: JERFT 08:17
DX: S86.911A Strain of unspecified muscle(s) and tendon(s) at lower leg level, right leg, initial encounter (principal); X58.XXXA Exposure to other specified factors, initial encounter; Y93.89 Activity, other specified; Y92.239 Unspecified place in hospital as the place of occurrence of the external cause; Y99.0 Civilian activity done for income or pay; R56.9 Unspecified convulsions
CPT/HCPCS: 99281-25

== ENCOUNTER 2018-04-15 03:28 | Emergency (ER) | payer BC, OTHER ==
[2018-04-15 04:18] VITALS: BP 130/95; PULSE 72; TEMP 97.8
[2018-04-15 04:20] VITALS: BMI 33.9
--- NOTE | 2018-04-15 04:46 | PDOC ---
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 Patient reports increased nasal congestion but denies any sore throats, ear pain, fevers, chills, difficulty breathing, chest pain. No recent travel or sick contacts. PAST MEDICAL HISTORY: see HPI SURGICAL HISTORY: Denies ALLERGIES: PCN, shellfish REVIEW OF SYSTEMS General/Constitutional: Denies fever or chills. Denies weakness, weight change. HEENT: Denies change in vision. Denies ear pain or discharge. Denies sore throat. +nasal congestion. +facial pain Cardiovascular: Denies chest pain or shortness of breath. Respiratory: Denies cough, wheezing, or hemoptysis. Gastrointestinal: Denies nausea, vomiting, diarrhea or constipation. Denies rectal bleeding. Genitourinary: Denies dysuria, frequency, or change in urination. Musculoskeletal: Denies joint or muscle swelling or pain. Denies neck or back pain. Skin and breasts: Denies rash or easy bruising. Neurologic: Denies headache, vertigo, loss of consciousness, or loss of sensation. Psychiatric: Denies depression or anxiety. Endocrine: Denies increased thirst. Denies abnormal weight change. Hematologic/Lymphatic: Denies anemia, easy bleeding, or history of blood clots. Allergic/Immunologic: Denies hives or skin allergy. Denies latex allergy. PHYSICAL EXAM General Appearance: Well-appearing, appropriately dressed. No apparent distress , no intoxication. HEENT: EOMI, PERRLA, normal ENT inspection, normal voice, TMs normal, pharynx normal. No conjunctival pallor. No photophobia, scleral icterus. Tenderness to light palpation over frontal and maxillary sinuses. Inflamed nasal turbinates noted. Neck: Supple. Trachea midline. No tenderness, rigidity, carotid bruit, stridor , lymphadenopathy, or thyromegaly. Respiratory/Chest: Lungs CTAB. No shortness of breath, chest tenderness, respiratory distress, accessory muscle use. No crackles, rales, rhonchi, stridor , wheezing, dullness Cardiovascular: RRR. S1, S2. No JVD, murmur, bradycardia, tachycardia. Neurologic: container filler II-XII intact. Fully oriented, alert. Appropriate mood/affect. Motor strength 5/5. No appreciable EOM palsy, facial droop or sensory deficit. 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 SHUNT at age 6) - Immunization History Immunization Up to Date: Yes - Suicide/Smoking/Psychosocial Hx Smoking History: Never smoked Have you smoked in the past 12 months: No Information on smoking cessation initiated: No Hx Alcohol Use: No Drug/Substance Use Hx: No Substance Use Type: None *Physical Exam - Vital Signs Last Vital Signs Temp Pulse Resp BP Pulse Ox 97.8 F 72 20 130/95 99 04/15/18 03:28 04/15/18 03:28 04/15/18 03:28 04/15/18 03:28 04/15/18 03:28 Moderate Sedation - Procedure Monitoring Vital Signs: Procedure Monitoring Vital Signs Temperature 97.8 F 04/15/18 03:28 Pulse Rate 72 04/15/18 03:28 Respiratory Rate 20 04/15/18 03:28 Blood Pressure 130/95 04/15/18 03:28 O2 Sat by Pulse Oximetry (%) 99 04/15/18 03:28 Medical Decision Making - Medical Decision Making 04/15/18 04:46 A/P: 38-year-old male with sinusitis Symptomatic treatment with [id number] medications such as [place], Tylenol, Motrin. Atrovent nasal spray prescription for nasal congestion. Patient to follow-up with his primary doctor in 7-10 days if symptoms do not resolve. *DC/Admit/Observation/Transfer Diagnosis at time of Disposition: Sinusitis nasal Qualifiers: Sinusitis location: maxillary Chronicity: acute Recurrence: non-recurrent Qualified Code(s): J01.00 - Acute maxillary sinusitis, unspecified - Discharge Dispostion Disposition: HOME Condition at time of disposition: Fair Decision to Admit order: No - Prescriptions Prescriptions: Ipratropium [place] 30 ml NS TID PRN #1 bottle PRN Reason: Nasal Congestion - Referrals - Patient Instructions Printed Discharge Instructions: DI for Sinusitis Additional Instructions: Keep well-hydrated. Drink plenty of water, teas, juices, Gatorade, Pedialyte Use Aminah Pot as needed to help decrease congestion You may use [place] nasal spray for sinus congestion Use Atrovent nasal spray 1 spray in each nostril 3 times a day as needed for congestion Take Tylenol or Motrin to help with pain. Follow manufacture's instructions for appropriate dosage. Make an appointment with her primary doctor for reevaluation within the next 7 days. Return to emergency department for any worsening pain, foul-smelling discharge from her nose, thick mucus discharge from her nose or any other concerns. - Post Discharge Activity
--- NOTE | 2018-04-15 05:11 | PDOC ---
*Physical Exam - Vital Signs Last Vital Signs Temp Pulse Resp BP Pulse Ox 97.8 F 72 20 130/95 99 04/15/18 03:28 04/15/18 03:28 04/15/18 03:28 04/15/18 03:28 04/15/18 03:28 Medical Decision Making - Medical Decision Making 04/15/18 05:11 Well appearing young man with nasal congestion Agree with documented assessment and plan *DC/Admit/Observation/Transfer Diagnosis at time of Disposition: Sinusitis nasal Qualifiers: Sinusitis location: maxillary Chronicity: acute Recurrence: non-recurrent Qualified Code(s): J01.00 - Acute maxillary sinusitis, unspecified - Discharge Dispostion Disposition: HOME Condition at time of disposition: Fair - Prescriptions Prescriptions: Ipratropium [place] 30 ml NS TID PRN #1 bottle PRN Reason: Nasal Congestion - Referrals - Patient Instructions Printed Discharge Instructions: DI for Sinusitis Additional Instructions: Keep well-hydrated. Drink plenty of water, teas, juices, Gatorade, Pedialyte Use Aminah Pot as needed to help decrease congestion You may use [place] nasal spray for sinus congestion Use Atrovent nasal spray 1 spray in each nostril 3 times a day as needed for congestion Take Tylenol or Motrin to help with pain. Follow manufacture's instructions for appropriate dosage. Make an appointment with her primary doctor for reevaluation within the next 7 days. Return to emergency department for any worsening pain, foul-smelling discharge from her nose, thick mucus discharge from her nose or any other concerns. - Post Discharge Activity
== END 2018-04-15 05:20 | disposition home or self-care (01) ==
LOC: JER 03:28
DX: J01.00 Acute maxillary sinusitis, unspecified (principal)
CPT/HCPCS: 99281-25

== ENCOUNTER 2018-05-04 07:20 | Emergency (ER) | payer BC ==
[2018-05-04 07:46] VITALS: BP 106/65; PULSE 96; TEMP 98.6; BMI 32.5
--- NOTE | 2018-05-04 08:13 | PDOC ---
History of Present Illness - General Chief Complaint: Cold Symptoms Stated Complaint: FLU LIKE SYMPTOMS Time Seen by Provider: 05/04/18 07:43 History Source: Patient Exam Limitations: No Limitations - History of Present Illness Initial Comments: 05/04/18 08:07 Pt. is a 38 y.o. M w/ PMHx. of epilepsy (s/p OVERSEER KOSHER KITCHEN shunt last when 19 y.o.) presents to the ED for "feeling under the weather," and diarrhea that started last night. Pt. states he has had 2 diarrheal episodes since this morning that contained non-bloody loose stool. Pt. complains of discomfort in the head just above the eyes and dehydration. Pt. denies fever, chills, cough, SOB, abdominal pain, nausea vomiting, dysuria, polyuria, hematuria, sudden changes in vision or chest pain. CBC, CMP, Mag, influenza test, and IVF were ordered. 05/04/18 09:36 Labs wnl Pt. will be given home dose of Keppra and is safe for discharge. Timing/Duration: 24 hours Severity: mild Modifying Factors: improves with: rest Associated Symptoms: reports: headaches. denies: chest pain, cough, diaphoresis , fever/chills, loss of appetite, nausea/vomiting, rash, seizure, shortness of breath, syncope Aspirin Received prior to arrival: Yes: no aspirin today Beta Rachael Contraindications(Core Measure): Yes: Not Prescribed Past History - Past Medical History Allergies/Adverse Reactions: Allergies Allergy/AdvReac Type Severity Reaction Status Date / Time Penicillins Allergy Unknown Verified 05/04/18 09:18 shellfish derived Allergy Verified 05/04/18 09:18 fruit Allergy Uncoded 05/04/18 09:18 vegetables Allergy Uncoded 05/04/18 09:18 Home Medications: Ambulatory Orders Phenytoin Na Extended [Dilantin -] 100 mg PO DAILY #60 capsule 12/25/17 Ipratropium [place] 30 ml NS TID PRN #1 bottle 04/15/18 COPD: No DVT: No Seizures: Yes - Surgical History Gastric Stapling: No Lung Surgery: No Neurologic Surgery: Yes (OVERSEER KOSHER KITCHEN SHUNT at age 6) - Immunization History Immunization Up to Date: Yes - Suicide/Smoking/Psychosocial Hx Smoking History: Never smoked Have you smoked in the past 12 months: No Information on smoking cessation initiated: No Hx Alcohol Use: No Drug/Substance Use Hx: No Substance Use Type: None Review of Systems - Review of Systems Constitutional: Yes: Weakness. No: Chills, Fever, Loss of Appetite HEENTM: No: Eye Pain, Recent change in vision, Tinnitus, Hearing Loss, Throat Pain, Throat Swelling, Difficulty Swallowing Respiratory: No: Cough, Shortness of Breath, SOB at Rest, Wheezing, Productive cough, Hemoptysis Cardiac (ROS): No: Chest Pain, Irregular Heart Rate, Lightheadedness, Palpitations, Chest Tightness ABD/GI: Yes: Diarrhea. No: Blood Streaked Bowels, Constipated, Difficulty Swallowing, Nausea, Poor Appetite, Poor Fluid Intake, Rectal Bleeding, Vomiting , Indigestion : No: Dysuria, Discharge, Frequency Integumentary: No: Symptoms Reported Neurological: Yes: Headache, Seizure (well controlled), Weakness. No: Numbness , Tingling, Tremors Endocrine: No: Symptoms Reported Hematologic/Lymphatic: No: Symptoms Reported *Physical Exam - Vital Signs Last Vital Signs Temp Pulse Resp BP Pulse Ox 98.6 F 96 H 18 106/65 99 05/04/18 07:43 05/04/18 07:43 05/04/18 07:43 05/04/18 07:43 05/04/18 07:43 - Physical Exam General Appearance: Yes: Nourished, Appropriately Dressed. No: Apparent Distress, Alcohol on Breath HEENT: positive: Normal Voice, Symmetrical, Sinus Tenderness, Hearing Grossly Normal Neck: positive: Supple. negative: Tender Respiratory/Chest: positive: Lungs Clear, Normal Breath Sounds. negative: Respiratory Distress, Crackles, Rales, Wheezing Cardiovascular: positive: Regular Rhythm, Regular Rate, S1, S2. negative: Edema , JVD, Murmur Vascular Pulses: Dorsalis-Pedis (R): 2+ (2+ radial ), Doralis-Pedis (L): 2+ (2+ radial) Gastrointestinal/Abdominal: positive: Soft, Increased Bowel Sounds, Tenderness. negative: Protuberent, Distended, Guarding, Rebound Rectal Exam: positive: deferred Musculoskeletal: positive: Normal Inspection. negative: CVA Tenderness Extremity: positive: Normal Capillary Refill, Normal Inspection, Normal Range of Motion. negative: Tender, Coldness, Cyanosis, Pedal Edema, Swelling, Calf Tenderness Integumentary: positive: Normal Color, Dry, Warm Neurologic: positive: Fully Oriented, Alert, Normal Mood/Affect, Normal Response , Respond to painful stimul, Responsive Moderate Sedation - Procedure Monitoring Vital Signs: Procedure Monitoring Vital Signs Temperature 98.6 F 05/04/18 07:43 Pulse Rate 96 H 05/04/18 07:43 Respiratory Rate 18 05/04/18 07:43 Blood Pressure 106/65 05/04/18 07:43 O2 Sat by Pulse Oximetry (%) 99 05/04/18 07:43 ED Treatment Course - LABORATORY CBC & Chemistry Diagram: 05/04/18 08:30 05/04/18 08:30 *DC/Admit/Observation/Transfer Diagnosis at time of Disposition: Diarrhea - Discharge Dispostion Disposition: HOME Condition at time of disposition: Stable Decision to Admit order: No - Referrals Referrals: Philipp Perez MD [Staff Physician] - - Patient Instructions Printed Discharge Instructions: Diarrhea, DI for Diarrhea and Traveler's Diarrhea -- Adult Additional Instructions: You came in for diarrhea. this could be infectious vs inflammatory stay well hydrated, drink your fluids and rest. We have given you supportive care with fluids and pain medication. Please follow up with your Primary Care Physician within 1 week, if you do not have a PCP we have provided one for you. Please return to the ED if you are experiencing worsening headache, sudden change in vision, nausea, worsening diarrhea or any other concerning symptoms. - Post Discharge Activity Forms/Work/School Notes: Back to Work
[2018-05-04] MEDS ORDERED: SODIUM CHLORIDE 1,000 ML IV SCH (08:15)
[2018-05-04] MEDS ORDERED: ACETAMINOPHEN 1000 MG/100 ML VIAL (NON FORMULARY) IVPB ONE (08:45)
[2018-05-04 09:04] LABS: BASO % 0.4 % (0-2.0); EOS % 1.5 % (0-4.5); HEMOGLOBIN 13.8 GM/dL (11.7-16.9); LYMPH % 14.1 % (8-40); MCHC 35.4 g/dl (32.0-35.9); MEAN PLT VOLUME 7.5 fl (7.5-11.1); MONO % 11.5 % (3.8-10.2); NEUT % 72.5 % (42.8-82.8); PLATELET COUNT 233 K/MM3 (134-434); RBC 4.76 M/mm3 (4.00-5.60); RDW 13.7 % (11.9-15.9)
--- NOTE | 2018-05-04 09:04 | PDOC ---
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 Decreased appetite and feeling dehydrated/under the weather. frontal PRIEST/sinus congestion since 04/15/18, when he was eval for sinusitis/URI Yoel suspicious food intake or sick contacts. Lives at home. Compliant with his keppra for his hydrocephalus/sz prevention. No fever or chills, no neuro changes/lethargy/AMS. No cp/cough or sob. No vomiting or AP/nausea. No urinary sx. - Physicial Exam PE: 05/04/18 09:02 NAD, well appearing, baseline dysconjugate gaze. nl conjunctiva, anicteric; neck supple. lungs clear, RRR, abdomen soft nontender. no rebound or guarding. VIVAS x4, no focal neuro deficits. No peripheral edema. normal color for ethnicity , WWP. no calf tenderness. - Medical Decision Making 05/04/18 09:01 See HPI for details Vital signs reviewed, wnl. Prior notes reviewed, including admissions, discharges and consultations. laboratory results and imaging reviewed, basic labs and lytes wnl, notable for_ . influenza neg. ED course: IVF and tylenol for sinus PRIEST, with resolution. no neuro deficits, abdomen soft, NT. doubt intra abdominal pathology/infection. given home dose of keppra here. rx supportive care, hydration and rest. work note provided Dispo: Pt informed of my clinical impression, treatment recommendations and disposition plan. All questions answered to patient's satisfaction and expressed understanding and comfort with this. Reasons for returning to the ED sooner discussed with the patient otherwise, follow up with primary care physician. At the time of discharge, the patient is alert, clinically improved, tolerating po and verbalizes understanding of instructions. Patient does not suffer from an acute life-threatening medical condition at this time she is safe for outpatient follow-up. 05/04/18 09:32
[2018-05-04 09:29] LABS: ALBUMIN 3.8 g/dl (3.4-5.0); ALK PHOS 54 U/L (45-117); ANION GAP 7 MMOL/L (8-16); BILIRUBIN,TOTAL 0.8 mg/dL (0.2-1); BLOOD UREA NITROGEN 15 mg/dL (7-18); CALCIUM 8.5 mg/dL (8.5-10.1); CHLORIDE 95 mmol/L (98-107); CO2 28 mmol/L (21-32); GLUCOSE,RANDOM 98 mg/dL (74-106); MAGNESIUM 2.2 mg/dL (1.8-2.4); POTASSIUM 4.1 mmol/L (3.5-5.1); SGOT/AST 31 U/L (15-37); SGPT/ALT 40 U/L (13-61); SODIUM 130 mmol/L (136-145); TOT PROT 7.5 g/dl (6.4-8.2)
[2018-05-04] MEDS ORDERED: levETIRAcetam 500 MG/5 ML INJECTION VIAL IVPB ONE (09:32)
== END 2018-05-04 10:18 | disposition home or self-care (01) ==
LOC: JER 07:20
DX: R19.7 Diarrhea, unspecified (principal)
CPT/HCPCS: 36415; 80053; 83735; 85025; 87804; 99282-25; J0131; J7030

== ENCOUNTER 2018-10-23 00:15 | Emergency (ER) | payer BC ==
[2018-10-23] MEDS ORDERED: BUPIVACAINE HCL/PF 0.5% (5MG/ML) 10 ML VIAL IJ ONE (00:25)
[2018-10-23] MEDS ORDERED: LIDOCAINE HCL 2% (50ML VIAL) SNB ONE (00:26)
[2018-10-23] MEDS ORDERED: BUPIVACAINE HCL/PF 0.5% (5MG/ML) 10 ML VIAL ONE (00:28)
[2018-10-23] MEDS ORDERED: LIDOCAINE HCL 2% (20ML MULTI-DOSE VIAL) NR ONE (00:28)
[2018-10-23 00:33] VITALS: BP 146/74; PULSE 81; TEMP 98.6; BMI 27.1
--- NOTE | 2018-10-23 00:37 | PDOC ---
History of Present Illness - General Stated Complaint: TOOTHACHE Time Seen by Provider: 10/23/18 00:21 History Source: Patient Exam Limitations: No Limitations - History of Present Illness Initial Comments: 10/23/18 00:27 HISTORY OF PRESENT ILLNESS: 38-year-old male with past medical history of seizures presents emergency department for evaluation of toothache. Patient reports hasn't seen a dentist in many years and has been having pain to his left lower molar which worsened today. No recent travel or sick contacts. PAST MEDICAL HISTORY: see HPI SURGICAL HISTORY: Denies ALLERGIES: PCN; shellfish REVIEW OF SYSTEMS General/Constitutional: Denies fever or chills. Denies weakness, weight change. HEENT: see HPI Cardiovascular: Denies chest pain or shortness of breath. Respiratory: Denies cough, wheezing, or hemoptysis. Gastrointestinal: Denies nausea, vomiting, diarrhea or constipation. Denies rectal bleeding. Genitourinary: Denies dysuria, frequency, or change in urination. Musculoskeletal: Denies joint or muscle swelling or pain. Denies neck or back pain. Skin and breasts: Denies rash or easy bruising. Neurologic: Denies headache, vertigo, loss of consciousness, or loss of sensation. Psychiatric: Denies depression or anxiety. Endocrine: Denies increased thirst. Denies abnormal weight change. Hematologic/Lymphatic: Denies anemia, easy bleeding, or history of blood clots. Allergic/Immunologic: Denies hives or skin allergy. Denies latex allergy. PHYSICAL EXAM General Appearance: Well-appearing, appropriately dressed. No apparent distress , no intoxication. HEENT: EOMI, PERRLA, normal ENT inspection, normal voice, TMs normal, pharynx normal. No conjunctival pallor. No photophobia, scleral icterus. Multiple dental caries present. Significant dental carry present to lingual aspect of tooth #18. No palpable abscesses noted. Neck: Supple. Trachea midline. No tenderness, rigidity, carotid bruit, stridor , lymphadenopathy, or thyromegaly. Respiratory/Chest: Lungs CTAB. No shortness of breath, chest tenderness, respiratory distress, accessory muscle use. No crackles, rales, rhonchi, stridor , wheezing, dullness Cardiovascular: RRR. S1, S2. No JVD, murmur, bradycardia, tachycardia. Neurologic: mechanics supervisor II-XII intact. Fully oriented, alert. Appropriate mood/affect. Motor strength 5/5. No appreciable EOM palsy, facial droop or sensory deficit. Past History - Past Medical History Allergies/Adverse Reactions: Allergies Allergy/AdvReac Type Severity Reaction Status Date / Time Penicillins Allergy Unknown Verified 05/04/18 09:18 shellfish derived Allergy Verified 05/04/18 09:18 fruit Allergy Uncoded 05/04/18 09:18 vegetables Allergy Uncoded 05/04/18 09:18 Home Medications: Ambulatory Orders Phenytoin Na Extended [Dilantin -] 100 mg PO DAILY #60 capsule 12/25/17 Ipratropium [place] 30 ml NS TID PRN #1 bottle 04/15/18 Clindamycin [Cleocin -] 300 mg PO TID #21 capsule 10/23/18 COPD: No DVT: No Seizures: Yes - Surgical History Gastric Stapling: No Lung Surgery: No Neurologic Surgery: Yes (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6) - Immunization History Immunization Up to Date: Yes - Suicide/Smoking/Psychosocial Hx Smoking History: Never smoked Have you smoked in the past 12 months: No Hx Alcohol Use: No Drug/Substance Use Hx: No Substance Use Type: None Medical Decision Making - Medical Decision Making 10/23/18 00:37 A/P: 38-year-old male with dentalgia Inferior alveolar block Discharge home with prescription for clindamycin 300 mg orally and to follow-up with dentist within the next 7 days *DC/Admit/Observation/Transfer Diagnosis at time of Disposition: Toothache - Discharge Dispostion Disposition: HOME Condition at time of disposition: Stable Decision to Admit order: No - Prescriptions Prescriptions: Clindamycin [Cleocin -] 300 mg PO TID #21 capsule - Referrals - Patient Instructions Additional Instructions: Rest, drink lots of fluids: Teas, water, soups Saltwater gargles/ keep mouth clean and rinse after each meal May use wet teabag for pain relief to area Avoid hard chewing foods, stick to ice cream, Jell-O, yogurt etc. Tylenol or Motrin for fever and pain Complete all medication as prescribed Call [facility] at [phone] Followup with private physician in one to 2 days as needed Return to emergency department for worsened symptoms, fevers, swelling to face or worsened pain - Post Discharge Activity
== END 2018-10-23 00:55 | disposition home or self-care (01) ==
LOC: JER 00:15
PROC: 3E0 Administration, Physiological Systems and Anatomical Regions, Introduction (ICD-10-PCS; principal; 2018-10-23)
DX: K08.89 Other specified disorders of teeth and supporting structures (principal)
CPT/HCPCS: 99282-25

== ENCOUNTER 2020-04-14 08:24 | Emergency (ER) | payer BC, OTHER ==
[2020-04-14 08:42] VITALS: BP 134/83; PULSE 78; TEMP 98; BMI 30.5
== END 2020-04-14 10:04 | disposition home or self-care (01) ==
LOC: JER 08:24
DX: S50.12XA Contusion of left forearm, initial encounter (principal)
CPT/HCPCS: 73090-TC-LT-FY; 73110-TC-LT-FY; 73130-TC-LT-FY; 99284-25

== ENCOUNTER 2020-05-22 05:25 | Emergency (ER) | payer BC, OTHER ==
[2020-05-22 05:34] VITALS: BMI 23.7
[2020-05-22 06:49] LABS: BASO % 0.8 % (0-2.0); EOS % 6.6 % (0-4.5); HEMATOCRIT 41.4 % (35.4-49); HEMOGLOBIN 14.1 GM/dL (11.7-16.9); LYMPH % 29.8 % (8-40); MEAN CELL VOLUME 82.5 fl (80-96); MEAN PLT VOLUME 7.1 fl (7.5-11.1); MONO % 10.7 % (3.8-10.2); NEUT % 52.1 % (42.8-82.8); PLATELET COUNT 253 K/MM3 (134-434); RBC 5.02 M/mm3 (4.00-5.60); RDW 14.1 % (11.9-15.9); WHITE BLOOD COUNT 7.2 K/mm3 (4.0-10.0)
[2020-05-22 07:23] LABS: ALBUMIN 3.9 g/dl (3.4-5.0); ALK PHOS 51 U/L (45-117); ANION GAP 8 MMOL/L (8-16); BILIRUBIN,TOTAL 0.4 mg/dL (0.2-1); BLOOD UREA NITROGEN 22.9 mg/dL (7-18); CALCIUM 8.4 mg/dL (8.5-10.1); CHLORIDE 100 mmol/L (98-107); CO2 24 mmol/L (21-32); CREATININE 1.1 mg/dL (0.55-1.3); GLUCOSE,RANDOM 119 mg/dL (74-106); MAGNESIUM 2.2 mg/dL (1.8-2.4); SGOT/AST 28 U/L (15-37); SGPT/ALT 22 U/L (13-61); SODIUM 131 mmol/L (136-145); TOT PROT 7.4 g/dl (6.4-8.2)
[2020-05-22] MEDS ORDERED: ACETAMINOPHEN 500 MG TABLET (FP) PO ONE (07:41)
[2020-05-22] MEDS ORDERED: METOCLOPRAMIDE HCL INJECTION 10 MG/2 ML VIAL IVPUSH ONE (07:41)
[2020-05-22] MEDS ORDERED: METOCLOPRAMIDE HCL INJECTION 10 MG/2 ML VIAL ONE (07:51)
[2020-05-22] MEDS ORDERED: ACETAMINOPHEN 325 MG TABLET (FP) ONE (07:51)
[2020-05-22 10:57] VITALS: TEMP 97.5
[2020-05-22 12:13] VITALS: BP 116/80; PULSE 84
== END 2020-05-22 12:13 | disposition home or self-care (01) ==
LOC: JER 05:25
PROC: 3E033GC Introduction of Other Therapeutic Substance into Peripheral Vein, Percutaneous Approach (ICD-10-PCS; principal; 2020-05-22)
DX: R51.9 Headache, unspecified (principal); M48.04 Spinal stenosis, thoracic region
CPT/HCPCS: 36415; 70450-TC; 70496-TC; 70498-TC; 80053; 82550; 82553; 83735; 84484; 85025; 93005; 93010; 99285-25

== ENCOUNTER 2020-09-05 08:07 | Emergency (ER) | payer BC ==
[2020-09-05 08:20] VITALS: BP 126/87; PULSE 58; TEMP 97.5; BMI 36.6
[2020-09-05] MEDS ORDERED: MAG HYDROX/AL HYDROX/SIMETH 30 ML UNIT-DOSE CUP PO ONE (08:46)
[2020-09-05] MEDS ORDERED: KETOROLAC TROMETHAMINE 30 MG/1 ML VIAL IM ONE (08:46)
[2020-09-05] MEDS ORDERED: KETOROLAC TROMETHAMINE 30 MG/1 ML VIAL ONE (09:08)
[2020-09-05] MEDS ORDERED: MAG HYDROX/AL HYDROX/SIMETH 30 ML UNIT-DOSE CUP ONE (09:08)
[2020-09-05 10:09] LABS: BASO % 0.8 % (0-2.0); EOS % 8.3 % (0-4.5); HEMATOCRIT 40.6 % (35.4-49); LYMPH % 28.2 % (8-40); MCHC 34.5 g/dl (32.0-35.9); MEAN CELL VOLUME 81.1 fl (80-96); MEAN PLT VOLUME 6.8 fl (7.5-11.1); MONO % 9.8 % (3.8-10.2); NEUT % 52.9 % (42.8-82.8); PLATELET COUNT 261 K/MM3 (134-434); RDW 13.9 % (11.9-15.9); WHITE BLOOD COUNT 5.1 K/mm3 (4.0-10.0)
[2020-09-05 10:41] LABS: CHLORIDE 99 mmol/L (98-107); SODIUM 131 mmol/L (136-145)
[2020-09-05 10:45] LABS: ANION GAP 5 MMOL/L (8-16); CALCIUM 9.3 mg/dL (8.5-10.1); CO2 27 mmol/L (21-32); GLUCOSE,RANDOM 97 mg/dL (74-106)
== END 2020-09-05 11:31 | disposition home or self-care (01) ==
LOC: JER 08:07
PROC: 3E023GC Introduction of Other Therapeutic Substance into Muscle, Percutaneous Approach (ICD-10-PCS; principal; 2020-09-05)
DX: J02.9 Acute pharyngitis, unspecified (principal)
CPT/HCPCS: 36415; 71046-TC-FY; 80048; 84484; 85025; 93005; 93010; 99285-25; C9803; U0003; U0005

== ENCOUNTER 2020-11-28 16:38 | Emergency (ER) | payer BC ==
[2020-11-28 16:57] VITALS: BP 123/78; PULSE 79; TEMP 98.3; BMI 30.5
[2020-11-28] MEDS ORDERED: KETOROLAC TROMETHAMINE 30 MG/1 ML VIAL IM ONE (18:20)
[2020-11-28] MEDS ORDERED: LIDOCAINE 5% TOPICAL PATCH TP ONE (18:20)
[2020-11-28] MEDS ORDERED: LIDOCAINE 5% TOPICAL PATCH ONE (18:22)
[2020-11-28] MEDS ORDERED: KETOROLAC TROMETHAMINE 30 MG/1 ML VIAL ONE (18:22)
[2020-11-29] MEDS ORDERED: LIDOCAINE PATCH REMOVAL MC ONE (06:30)
== END 2020-11-28 18:50 | disposition home or self-care (01) ==
LOC: JER 16:38 → JERFT 16:38
PROC: 3E0233Z Introduction of Anti-inflammatory into Muscle, Percutaneous Approach (ICD-10-PCS; principal; 2020-11-28)
DX: M54.31 Sciatica, right side (principal); M54.32 Sciatica, left side
CPT/HCPCS: 99283-25

== ENCOUNTER 2021-01-21 10:56 | Emergency (ER) | payer BC ==
[2021-01-21 11:16] VITALS: BP 123/86; PULSE 87; TEMP 98.2; BMI 30.2
== END 2021-01-21 13:00 | disposition home or self-care (01) ==
LOC: JERFT 10:56 → JER 10:56 → JERFT 13:00
DX: J06.9 Acute upper respiratory infection, unspecified (principal)
CPT/HCPCS: 99283-25; C9803; U0003; U0005

== ENCOUNTER 2021-02-13 08:33 | Emergency (ER) | payer OTHER, BC ==
[2021-02-13 08:40] VITALS: BP 150/66; PULSE 78; TEMP 98; BMI 30.9
[2021-02-13] MEDS ORDERED: IBUPROFEN 600 MG TABLET (FP) PO ONE (08:46)
== END 2021-02-13 09:17 | disposition home or self-care (01) ==
LOC: JERFT 08:33
DX: S05.11XA Contusion of eyeball and orbital tissues, right eye, initial encounter (principal); W22.8XXA Striking against or struck by other objects, initial encounter
CPT/HCPCS: 70150-TC-FY; 99283-25

== ENCOUNTER 2021-06-06 06:55 | Emergency (ER) | payer BC, OTHER ==
[2021-06-06 07:19] VITALS: BP 154/93; PULSE 71; BMI 29.8
[2021-06-06] MEDS ORDERED: IBUPROFEN 600 MG TABLET (FP) PO ONE ×2 (08:52→08:57)
== END 2021-06-06 11:19 | disposition home or self-care (01) ==
LOC: JERFT 06:55
DX: S63.601A Unspecified sprain of right thumb, initial encounter (principal); M79.644 Pain in right finger(s); X50.0XXA Overexertion from strenuous movement or load, initial encounter; Y04.0XXA Assault by unarmed brawl or fight, initial encounter
CPT/HCPCS: 73130-TC-RT-FY; 73140-TC-LT-FY; 99284-25

== ENCOUNTER 2021-06-10 10:38 | Emergency (ER) | payer OTHER ==
[2021-06-10 10:55] VITALS: BP 144/91; PULSE 57; TEMP 97.8; BMI 30.5
== END 2021-06-10 11:05 | disposition home or self-care (01) ==
LOC: JERFT 10:38 → JER 10:38 → JERFT 11:05
DX: M79.645 Pain in left finger(s) (principal)
CPT/HCPCS: 99281-25

== ENCOUNTER 2022-01-11 05:36 | Emergency (ER) | payer BC, OTHER ==
[2022-01-11 05:55] VITALS: TEMP 97.6; BMI 70.2
[2022-01-11 07:20] LABS: BASO % 0.7 % (0-2.0); EOS % 9.8 % (0-4.5); HEMATOCRIT 38.8 % (35.4-49); HEMOGLOBIN 13.2 GM/dL (11.7-16.9); LYMPH % 24.1 % (8-40); MCH 27.8 pg (25.7-33.7); MEAN PLT VOLUME 6.5 fl (7.5-11.1); MONO % 8.7 % (3.8-10.2); NEUT % 56.7 % (42.8-82.8); PLATELET COUNT 265 10^3/uL (134-434); RBC 4.74 M/mm3 (4.00-5.60); RDW 14.4 % (11.9-15.9); WHITE BLOOD COUNT 5.5 K/mm3 (4.0-10.0)
[2022-01-11 07:30] LABS: CHLORIDE 99 mmol/L (98-107); SODIUM 137 mmol/L (136-145)
[2022-01-11 07:33] LABS: CALCIUM 8.9 mg/dL (8.5-10.1)
[2022-01-11 07:34] LABS: ALBUMIN 3.9 g/dl (3.4-5.0); ANION GAP 6 MMOL/L (8-16); BLOOD UREA NITROGEN 12.1 mg/dL (7-18); CO2 32 mmol/L (21-32); GLUCOSE,RANDOM 58 mg/dL (74-106)
[2022-01-11 07:36] LABS: SGOT/AST 12 U/L (15-37); SGPT/ALT 23 U/L (13-61)
[2022-01-11 07:37] LABS: BILIRUBIN,TOTAL 0.4 mg/dL (0.2-1); TOT PROT 7.3 g/dl (6.4-8.2)
[2022-01-11 07:39] LABS: ALK PHOS 57 U/L (45-117)
[2022-01-11] MEDS ORDERED: MAG HYDROX/AL HYDROX/SIMETH 30 ML UNIT-DOSE CUP PO ONE (07:48)
[2022-01-11] MEDS ORDERED: FAMOTIDINE 10 MG TABLET PO ONE (07:48)
[2022-01-11] MEDS ORDERED: MAG HYDROX/AL HYDROX/SIMETH 30 ML UNIT-DOSE CUP ONE (08:16)
[2022-01-11] MEDS ORDERED: FAMOTIDINE 20 MG TABLET ONE (08:16)
[2022-01-11 09:19] VITALS: BP 131/81; PULSE 65; RESP 16
== END 2022-01-11 09:21 | disposition home or self-care (01) ==
LOC: JER 05:36
DX: R07.9 Chest pain, unspecified (principal)
CPT/HCPCS: 0241U-QW; 36415; 71046-TC-FY; 80053; 82962; 84484; 85025; 93005; 93010; 99285-25

== ENCOUNTER 2022-11-27 06:13 | Emergency (ER) | payer BC ==
[2022-11-27 06:19] VITALS: BP 133/76; PULSE 63; RESP 18; TEMP 98.3; BMI 29.8
[2022-11-27] MEDS ORDERED: METHOCARBAMOL 750 MG TABLET PO STA (06:25)
[2022-11-27] MEDS ORDERED: METHOCARBAMOL 500 MG TABLET ONE (06:37)
[2022-11-27] MEDS ORDERED: IBUPROFEN 600 MG TABLET (FP) PO ONE ×2 (06:56→07:20)
[2022-11-27] MEDS ORDERED: MAG HYDROX/AL HYDROX/SIMETH 30 ML UNIT-DOSE CUP ONE (07:20)
[2022-11-27] MEDS ORDERED: MAG HYDROX/AL HYDROX/SIMETH 30 ML UNIT-DOSE CUP PO ONE (07:20)
== END 2022-11-27 09:48 | disposition home or self-care (01) ==
LOC: JER 06:13
DX: M54.2 Cervicalgia (principal); M43.6 Torticollis
CPT/HCPCS: 93005; 93010; 99283-25

== ENCOUNTER 2023-03-05 05:25 | Emergency (ER) | payer BC ==
[2023-03-05 05:33] VITALS: BP 126/76; PULSE 61; RESP 18; TEMP 97.6; BMI 30.9
[2023-03-05 07:37] LABS: BASO % 0.8 % (0-2.0); EOS % 5.8 % (0-4.5); HEMATOCRIT 40.6 % (35.4-49); HEMOGLOBIN 13.1 GM/dL (11.7-16.9); LYMPH % 33.7 % (8-40); MCH 26.6 pg (25.7-33.7); MCHC 32.4 g/dl (32.0-35.9); MEAN CELL VOLUME 82.2 fl (80-96); MEAN PLT VOLUME 7.3 fl (7.5-11.1); MONO % 11.1 % (3.8-10.2); NEUT % 48.6 % (42.8-82.8); PLATELET COUNT 278 10^3/uL (134-434); RBC 4.94 M/mm3 (4.00-5.60); RDW 13.5 % (11.9-15.9); WHITE BLOOD COUNT 6.2 K/mm3 (4.0-10.0)
[2023-03-05 07:56] LABS: CALCIUM 8.9 mg/dL (8.5-10.1); POTASSIUM 4.8 mmol/L (3.5-5.1)
[2023-03-05 07:57] LABS: ALBUMIN 3.9 g/dl (3.4-5.0); BLOOD UREA NITROGEN 15.9 mg/dL (7-18)
[2023-03-05 08:02] LABS: TOT PROT 7.3 g/dl (6.4-8.2)
[2023-03-05 08:17] LABS: EPI CELLS 3 /uL (0-25.1); HYALINE CASTS 0 /uL (0-3.1); URINE APPEARANCE CLEAR; URINE BACTERIA 2 /uL (0-1359); URINE BILIRUBIN NEGATIVE (NEGATIVE); URINE COLOR YELLOW; URINE GLUCOSE (UA) NEGATIVE (NEGATIVE); URINE KETONE NEGATIVE (NEGATIVE); URINE LEUK ESTERASE NEGATIVE (NEGATIVE); URINE NITRITE NEGATIVE (NEGATIVE); URINE PROTEIN NEGATIVE (NEGATIVE); URINE RBC 65 /uL (0-23.9); URINE UROBILINOGEN 0.2 mg/dL (0.2-1.0); URINE WBC 8 /uL (0-25.8)
[2023-03-05 13:48] LABS: SYPHILIS W/ RPR CONF NON-REACTIVE (NONREACTIVE)
[2023-03-05 14:17] LABS: HIV INTERPRETATION NEGATIVE (NEGATIVE)
== END 2023-03-05 09:38 | disposition home or self-care (01) ==
LOC: JER 05:25
DX: R10.30 Lower abdominal pain, unspecified (principal); R31.9 Hematuria, unspecified; R35.0 Frequency of micturition
CPT/HCPCS: 36415; 80053; 81003; 85025; 86780; 87086; 87389; 87491; 87591; 99283-25

== ENCOUNTER 2023-03-11 06:38 | Emergency (ER) | payer OTHER, BC ==
[2023-03-11 06:49] VITALS: BP 135/88; PULSE 100; RESP 18; TEMP 98.3; BMI 30.1
[2023-03-11] MEDS ORDERED: ACETAMINOPHEN 500 MG TABLET (FP) PO ONE (07:51)
[2023-03-11] MEDS ORDERED: IBUPROFEN 600 MG TABLET (FP) PO ONE ×2 (07:51→08:11)
[2023-03-11] MEDS ORDERED: ACETAMINOPHEN 500 MG TABLET (FP) ONE (08:11)
== END 2023-03-11 08:49 | disposition home or self-care (01) ==
LOC: JER 06:38 → JERFT 06:38
DX: S60.222A Contusion of left hand, initial encounter (principal); M79.642 Pain in left hand; Y04.8XXA Assault by other bodily force, initial encounter; Y99.0 Civilian activity done for income or pay
CPT/HCPCS: 73130-TC-LT-FY; 99283-25

== ENCOUNTER 2023-06-10 07:10 | Emergency (ER) | payer OTHER, BC ==
[2023-06-10 07:27] VITALS: BP 122/71; PULSE 77; RESP 18; TEMP 98.7
[2023-06-10] MEDS ORDERED: KETOROLAC TROMETHAMINE 30 MG/1 ML VIAL ONE (08:10)
[2023-06-10] MEDS ORDERED: ACETAMINOPHEN 500 MG TABLET (FP) ONE (08:10)
[2023-06-10] MEDS: ACETAMINOPHEN 500 MG TABLET (FP) PO ONE (08:16)
[2023-06-10] MEDS: KETOROLAC TROMETHAMINE 30 MG/1 ML VIAL IM ONE (08:16)
== END 2023-06-10 09:37 | disposition home or self-care (01) ==
LOC: JERFT 07:10 → JER 07:10 → JERFT 09:37
PROC: 3E0233Z Introduction of Anti-inflammatory into Muscle, Percutaneous Approach (ICD-10-PCS; principal; 2023-06-10)
DX: M54.50 Low back pain, unspecified (principal); M79.604 Pain in right leg; W18.39XA Other fall on same level, initial encounter
CPT/HCPCS: 72100-TC-FY; 99284-25

== ENCOUNTER 2023-10-14 23:49 | Emergency (ER) | payer BC, OTHER ==
[2023-10-14 23:55] VITALS: BP 101/66; PULSE 96; RESP 16; TEMP 98.3; BMI 29.4
[2023-10-15] MEDS ORDERED: LIDOCAINE 4% PATCH TP ONE (00:17)
[2023-10-15] MEDS ORDERED: KETOROLAC TROMETHAMINE 30 MG/1 ML VIAL ONE (00:17)
[2023-10-15] MEDS ORDERED: METHOCARBAMOL 500 MG TABLET ONE (00:25)
[2023-10-15] MEDS: LIDOCAINE 4% PATCH TP ONE (00:28)
[2023-10-15] MEDS: KETOROLAC TROMETHAMINE 30 MG/1 ML VIAL IM ONE (00:28)
[2023-10-15] MEDS: METHOCARBAMOL 750 MG TAB PO ONE (00:28)
[2023-10-15] MEDS ORDERED: LIDOCAINE PATCH REMOVAL MC SCH (22:00)
== END 2023-10-15 01:35 | disposition home or self-care (01) ==
LOC: JER 23:49
PROC: 3E0233Z Introduction of Anti-inflammatory into Muscle, Percutaneous Approach (ICD-10-PCS; principal; 2023-10-15)
DX: M79.605 Pain in left leg (principal); M54.50 Low back pain, unspecified
CPT/HCPCS: 99284-25

== ENCOUNTER 2024-01-15 03:40 | Emergency (ER) | payer OTHER, BC ==
[2024-01-15 03:52] VITALS: BP 133/82; PULSE 82; RESP 18; TEMP 98.2; BMI 29.1
[2024-01-15 06:50] LABS: HIV INTERPRETATION NEGATIVE (NEGATIVE)
== END 2024-01-15 05:41 | disposition home or self-care (01) ==
LOC: JER 03:40
DX: Z77.21 Contact with and (suspected) exposure to potentially hazardous body fluids (principal)
CPT/HCPCS: 36415; 86803; 87389; 99283-25

== ENCOUNTER 2024-01-21 01:17 | Emergency (ER) | payer BC, OTHER ==
[2024-01-21 01:30] VITALS: BP 119/69; PULSE 62; RESP 18; TEMP 97.7; BMI 29.1
== END 2024-01-21 01:45 | disposition home or self-care (01) ==
LOC: JER 01:17
DX: B30.9 Viral conjunctivitis, unspecified (principal)
CPT/HCPCS: 99283-25

== ENCOUNTER 2024-03-01 05:05 | Emergency (ER) | payer OTHER, BC ==
[2024-03-01 05:15] VITALS: BP 121/76; PULSE 66; RESP 20; TEMP 97.7; BMI 28.0
[2024-03-01] MEDS ORDERED: LIDOCAINE 4% PATCH TP ONE (05:47)
[2024-03-01] MEDS ORDERED: ACETAMINOPHEN 325 MG TABLET (FP) ONE (05:47)
[2024-03-01] MEDS: LIDOCAINE 4% PATCH TP ONE (05:53)
[2024-03-01] MEDS: ACETAMINOPHEN 500 MG TABLET (FP) PO ONE (05:54)
[2024-03-01] MEDS ORDERED: LIDOCAINE PATCH REMOVAL MC SCH (22:00)
== END 2024-03-01 07:10 | disposition home or self-care (01) ==
LOC: JER 05:05
DX: M25.561 Pain in right knee (principal); M25.562 Pain in left knee; W01.0XXA Fall on same level from slipping, tripping and stumbling without subsequent striking against object, initial encounter
CPT/HCPCS: 73562-TC-LT-FY; 73562-TC-RT-FY; 99283-25

== ENCOUNTER 2024-06-10 03:16 | Emergency (ER) | payer BC, OTHER ==
[2024-06-10 03:29] VITALS: BP 117/76; PULSE 70; RESP 20; TEMP 97.7; BMI 29.1
[2024-06-10] MEDS ORDERED: ACETAMINOPHEN 325 MG TABLET (FP) ONE (04:15)
[2024-06-10] MEDS: ACETAMINOPHEN 500 MG TABLET (FP) PO ONE (04:29)
== END 2024-06-10 06:13 | disposition home or self-care (01) ==
LOC: JER 03:16
DX: R09.81 Nasal congestion (principal); M79.10 Myalgia, unspecified site; B34.9 Viral infection, unspecified; Z20.822 Contact with and (suspected) exposure to COVID-19
CPT/HCPCS: 0241U-QW; 99283-25

== ENCOUNTER 2024-09-13 01:05 | Emergency (ER) | payer OTHER, BC ==
[2024-09-13 01:15] VITALS: BP 122/76; PULSE 88; RESP 20; TEMP 98; BMI 29.0
[2024-09-13] MEDS ORDERED: ACETAMINOPHEN 325 MG TABLET (FP) ONE (01:29)
[2024-09-13] MEDS: ACETAMINOPHEN 500 MG TABLET (FP) PO ONE (01:32)
== END 2024-09-13 03:13 | disposition home or self-care (01) ==
LOC: JER 01:05
DX: S01.511A Laceration without foreign body of lip, initial encounter (principal); S60.012A Contusion of left thumb without damage to nail, initial encounter; Y04.0XXA Assault by unarmed brawl or fight, initial encounter; Y99.0 Civilian activity done for income or pay
CPT/HCPCS: 70110-TC-FY; 99283-25

== ENCOUNTER 2024-12-23 23:19 | Emergency (ER) | payer OTHER, BC ==
[2024-12-23 23:34] VITALS: BP 134/83; PULSE 72; RESP 18; TEMP 98; BMI 28.5
[2024-12-24] MEDS: IBUPROFEN 600 MG TABLET (FP) PO ONE (00:10)
[2024-12-24] MEDS ORDERED: IBUPROFEN 600 MG TABLET (FP) PO ONE (00:15)
== END 2024-12-24 00:16 | disposition home or self-care (01) ==
LOC: JER 23:19
DX: M25.532 Pain in left wrist (principal); Y00.XXXA Assault by blunt object, initial encounter; Y99.0 Civilian activity done for income or pay; Y92.238 Other place in hospital as the place of occurrence of the external cause
CPT/HCPCS: 73110-TC-LT-FY; 73130-TC-LT-FY; 99283-25